=== PATIENT | male | born 1980 | race Caucasian/White ===

== ENCOUNTER 2017-07-14 20:23 | Emergency (ER) | payer MEDICAID ==
[2017-07-15] MEDS: KETOROLAC 30 MG INJ IV (01:10)
[2017-07-15 01:24] LABS: ADD MAN DIFF? NO
[2017-07-15 01:31] LABS: BASOPHILS % 0.4 % (0.0-2.0); EOSINOPHILS # 0.1 10^3/ul (0.0-0.5); EOSINOPHILS % 1.3 % (0.0-7.0); HEMATOCRIT 45.3 % (42.0-52.0); LYMPHOCYTES # 3.4 10^3/ul (0.8-2.9); MEAN CORPUSCULAR HEMOGLOBIN 26.5 pg (29.0-33.0); MEAN CORPUSCULAR HGB CONC 33.1 g/dl (32.0-37.0); MEAN CORPUSCULAR VOLUME 80.2 fl (82.0-101.0); MEAN PLATELET VOLUME 11.2 fl (7.4-10.4); MONOCYTE # 0.5 10^3/ul (0.3-0.9); MONOCYTES % 4.8 % (0.0-11.0); NEUTROPHIL # 6.8 10^3/ul (1.6-7.5); NEUTROPHILS % 62.1 % (39.0-77.0); PLATELET COUNT 230 10^3/UL (140-415); RED BLOOD COUNT 5.65 10^6/ul (4.70-6.10); RED CELL DISTRIBUTION WIDTH 13.7 % (11.5-14.5)
[2017-07-15 01:31] LABS: WHITE BLOOD COUNT 10.9 10^3/ul (4.8-10.8)
[2017-07-15 02:10] LABS: ANION GAP 19 (8-16); BLOOD UREA NITROGEN 21 mg/dl (7-20); CALCIUM 9.3 mg/dl (8.4-10.2); CARBON DIOXIDE 23 mmol/L (21-31); CHLORIDE 107 mmol/L (97-110); GLUCOSE 115 mg/dl (70-220); POTASSIUM 4.1 mmol/L (3.5-5.1); SODIUM 145 mmol/L (135-144)
[2017-07-15 02:24] LABS: TROPONIN-I < 0.012 ng/ml (0.00-0.12)
[2017-07-15 02:45] LABS: B-TYPE NATRIURETIC PEPTIDE 16 PG/ML (0-125)
== END 2017-07-15 05:13 | disposition home or self-care (01) ==
LOC: E/R 20:23
DX: R07.9 Chest pain, unspecified (principal); R40.2142 Coma scale, eyes open, spontaneous, at arrival to emergency department; R40.2252 Coma scale, best verbal response, oriented, at arrival to emergency department; R40.2362 Coma scale, best motor response, obeys commands, at arrival to emergency department
CPT/HCPCS: 36415; 71045; 80048; 83880; 84484; 85025; 93005; 96374; 99285-25